=== PATIENT | male | born 1955 | race Two or more races ===

== ENCOUNTER 2017-06-14 10:19 | Day surgery (SDC) | payer OTHER ==
[2017-06-14] MEDS ORDERED: LIDOCAINE 1% 2 ML INJ ID PRN (11:11)
[2017-06-14] MEDS ORDERED: LR 1,000 ML IV ONE (11:11)
--- NOTE | 2017-06-14 11:46 | PDANEPAE ---
ANE History of Present Illness here for colonoscopy ANE Past Medical History - Cardiovascular History Hx Hypertension: Yes Hx Arrhythmias: No Hx Chest Pain: No Hx Coronary Artery / Peripheral Vascular Disease: No Hx CHF / Valvular Disease: No Hx Palpitations: No - Pulmonary History Hx COPD: No Hx Asthma/Reactive Airway Disease: No Hx Recent Upper Respiratory Infection: No Hx Oxygen in Use at Home: Yes O2 in Use at Home (L/minute): 2L Hx Sleep Apnea: No Sleep Apnea Screening Result - Last Documented: Positive - Neurologic History Hx Cerebrovascular Accident: No Hx Seizures: No Hx Dementia: No - Endocrine History Hx Diabetes: Yes - Renal History Hx Renal Disorders: No - Liver History Hx Hepatic Disorders: No - Neurological & Psychiatric Hx Hx Neurological and Psychiatric Disorders: No - Cancer History Hx Cancer: No - Congenital Disorder History Hx Congenital Disorders: No - GI History Hx Gastrointestinal Disorders: Yes Gastrointestinal History Comment: NONE - Other Health History Other Health History: NONE - Chronic Pain History Chronic Pain: Yes (KNEE AND SHOULDERS) - Surgical History Prior Surgeries: knee replacement, both shoulder surgery ANE Review of Systems Review of systems is: negative Review of Systems: - Exercise capacity Exercise capacity: >=4 METS METS (RN): 4 METS ANE Patient History - Allergies Allergies/Adverse Reactions: Penicillins Allergy (Verified 06/14/17 11:30) - Home Medications Home medications: home medication list seen and reviewed Home Medications: Atorvastatin Calcium 40 mg 06/14/17 [Last Taken 06/12/17] Calcium 1,000 + D3 Caplet 06/14/17 [Last Taken 06/13/17] Docusate Sodium 06/14/17 [Last Taken 06/13/17] HYDROCODONE BIT/ACETAMINOPHEN 5 - 325 mg 06/14/17 [Last Taken 06/13/17] Hydroxyzine HCl 50 mg 06/14/17 [Last Taken 06/13/17] Lisinopril/Hctz 20/12.5MG 06/14/17 [Last Taken 06/13/17] MAGNESIUM 250 mg TID 06/14/17 [Last Taken 06/13/17] Metformin HCl 500 mg 06/14/17 [Last Taken 06/13/17] Omeprazole 20 mg 06/14/17 [Last Taken 06/13/17] Ropinirole HCl 1 mg 06/14/17 [Last Taken 06/13/17] - NPO status NPO Status: no food or drink >8 hours NPO Since - Liquids (Date): 06/13/17 NPO Since - Liquids (Time): 23:00 NPO Since - Solids (Date): 06/13/17 NPO Since - Solids (Time): 23:00 - Smoking Hx Smoking Status: Never smoked - Family Anes Hx Family Hx Anesthesia Complications: none ANE Labs/Vital Signs - Vital Signs Blood Pressure: 104/75 Heart Rate: 70 Respiratory Rate: 18 O2 Sat (%): 93 Height: 165.1 cm Weight: 99.79 kg ANE Physical Exam - Airway Neck exam: FROM, short neck Mallampati Score: Class 2 - Pulmonary Pulmonary: no respiratory distress - Cardiovascular Cardiovascular: regular rate and rhythym - ASA Status ASA Status: III ANE Anesthesia Plan Anesthesia Plan: GA with mask Total IV Anesthesia: Yes
--- NOTE | 2017-06-14 11:52 | PDGENHP ---
History & Physical Chief Complaint: H/o colon polyps History of Present Illness: Polyp reomved last colon At [place] 2004. Pertinent Past, Social, Family History: Pulm disease requires O2. GERD with dysphagia. no fam h/o colon cancer or colon polyps Relevant Physical Exam: Cv rrr s1s2 nl. Chest cta. Abd + bs soft Cardiorespiratory Assessment: asa3
[2017-06-14] MEDS ORDERED: PROPOFOL/EMULSION 500 MG/50 ML BOTTLE IV ONE (11:58)
--- NOTE | 2017-06-14 12:26 | GIREPORT ---
[facility] Surgical Services - Endoscopy Department Patient Name: Emmanuel Leal Procedure Date: 06/14/2017 12:09 PM Patient Type: Outpatient Attending MD/ ER Physician: Janna Wheat MD Procedure: Colonoscopy Indications: High risk colon cancer surveillance: Personal history of colonic polyps Providers: Janna Wheat MD Medicines: Monitored Anesthesia Care Complications: No immediate complications. Description of Procedure: After obtaining informed consent, the scope was passed under direct vis ion. Throughout the procedure, the patient's blood pressure, pulse, and oxyg en saturations were monitored continuously. The Colonoscope with irrigatio n channel was introduced through the anus and advanced to the cecum, identified by appendiceal orifice and ileocecal valve. The colonoscopy was performed without difficulty. The patient tolerated the procedure well. The quality of the bowel preparation was adequate. The ileocecal valve, appendiceal orifice, and rectum were photographed. Findings: The perianal and digital rectal examinations were normal. A 5 mm polyp was found in the transverse colon. The polyp was sessile. The polyp was removed with a cold snare. Resection was complete, but the po lyp tissue was not retrieved. Estimated blood loss was minimal. Estimated Blood Loss: Estimated blood loss was minimal. Post Op Diagnosis: - One 5 mm polyp in the transverse colon, removed with a cold snare. Complete resection. Polyp tissue not retrieved. Recommendation: - Patient has a contact number available for emergencies. The signs and symptoms of potential delayed complications were discussed with the pat ient. Return to normal activities tomorrow. Written discharge instructions we re provided to the patient. - Resume previous diet. - Continue present medications. - Repeat colonoscopy in 5 years for surveillance. - Discharge patient to home. - Thank you for allowing me to participate in the care of your patient. Attending Participation: I personally performed the entire procedure. Janna Wheat MD Janna Wheat MD 06/14/2017 12:27:04 PM This report has been signed electronicallyJanna Wheat MD Number of Addenda: 0 Note Initiated On: 06/14/2017 12:09 PM Total Procedure Duration Time 0 hours 13 minutes 0 seconds [email or web address]
--- NOTE | 2017-06-14 13:05 | POSTANESTH ---
Post Anesthetic Evaluation Cardiovascular Status: Normal, Stable Respiratory Status: Normal, Stable Level of Consciousness/Mental Status: Can Participate in Eval Pain Control: Adequate, Prn Tx Ordered Nausea/Vomiting Control: Adequate, Prn Tx Ordered Complications Possibly Related to Anesthesia: None Noted
[2017-06-14 14:06] VITALS: RESP 16
[2017-06-14 14:23] VITALS: BP 109/66; PULSE 61; TEMP 98.2; O2SAT 94
== END 2017-06-14 14:15 | disposition home or self-care (01) ==
LOC: FSGY 10:19
PROVIDERS: ATTEND Internal Medicine Gastroenterology
PROC: 0DBL8ZZ Excision of Transverse Colon, Via Natural or Artificial Opening Endoscopic (ICD-10-PCS; principal; 2017-06-14 12:00)
DX: D12.3 Benign neoplasm of transverse colon (principal)
CPT/HCPCS: J2704